=== PATIENT | female | born 1975 | race African-American/Black ===

== ENCOUNTER 2018-05-20 06:15 | Day surgery (SDC) | payer BC ==
--- NOTE | 2018-05-19 08:50 | EKG ---
Test Date: 2018-05-19 Test Time: 08:33:38 Animal Behaviourist: MULU MEASUREMENT RESULTS: Intervals: Rate: 64 WI: 140 QRSD: 90 QT: 430 QTc: 443 Gipsy: P: 54 WI: 140 QRS: 3 T: 8 INTERPRETIVE STATEMENTS: Normal sinus rhythm Normal ECG No previous ECG available for comparison Electronically Signed On 05-19-18 08:50:12 DIRECTOR [employer]ENCY by Wu Green
[2018-05-20 06:28] LABS: Specific Gravity >= 1.030 (1.005-1.030)
[2018-05-20] MEDS ORDERED: Ringers Lactate 1,000 ML IV ONE ×2 (06:51→08:37)
[2018-05-20] MEDS ORDERED: CEFAZOLIN/SWI 1gm 0 GM/0 ML SYR ONE ×2 (06:52)
[2018-05-20] MEDS ORDERED: LIDOCAINE 1% MPF 5 ML VIAL ONE (06:55)
[2018-05-20] MEDS ORDERED: Ringers Lactate 1,000 ML IV SCH (07:30)
[2018-05-20] MEDS: CEFAZOLIN/SWI 2gm 2 GM/20 ML SYR IVP SCH ×2 (07:34→07:44)
[2018-05-20] MEDS ORDERED: FENTANYL CITR 100 MCG/2 ML ONE (07:46)
[2018-05-20] MEDS ORDERED: MIDAZOLAM HCL 2 MG/2 ML INJ ONE (07:46)
[2018-05-20] MEDS ORDERED: LIDOCAINE 2% MPF 5 ML VIAL ONE (07:46)
[2018-05-20] MEDS ORDERED: PROPOFOL 200 MG/20 ML VIAL IV ONE (07:46)
[2018-05-20] MEDS ORDERED: FAMOTIDINE 20 MG/2 ML VIAL IV ONE (08:00)
[2018-05-20] MEDS ORDERED: KETOROLAC 30 MG/ML INJ ONE (08:29)
[2018-05-20] MEDS ORDERED: ONDANSETRON 4 MG/2 ML VIAL ONE (08:31)
[2018-05-20] MEDS ORDERED: DEXAMETHASONE 4 MG/ML VIAL ONE (08:31)
[2018-05-20] MEDS: MEPERIDINE HCL 25 MG/0.5 ML ONE ×2 (08:50→08:55)
[2018-05-20] MEDS ORDERED: HYDROCODONE/APAP 5/325 MG TAB ONE (09:54)
--- NOTE | 2018-05-24 09:06 | OP ---
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 Preoperative Diagnoses: Menorrhagia with regular cycles and dysmenorrhea. Postoperative Diagnoses: Menorrhagia with regular cycles and dysmenorrhea. Procedures Performed: Hysteroscopy, endometrial ablation with HTA, which is hydrothermal ablation. Anesthesia: General endotracheal. Specimens: No specimens. Complications: No complications. Drains: No drains. Condition: Stable. Findings: Endometrial ablation was performed successfully without any interruption. There was a dil ated right cornual end leading into the tube. No evidence of any leakage on cavity integrity test, t his passed very quickly, and the ablation was performed along the package instruction guidelines, and there was no problem with leak recognized, and the patient tolerated the procedure well. There was an excellent ablation effect at end of the procedure. Indications: The patient is a 43-year-old with menorrhagia and dysmenorrhea. She had an ongoing hea vy bleeding with clots. She was evaluated with ultrasound and endometrial sampling. No evidence of any malignancy or atypia. So, we discussed about the options of using a Mirena IUD with diagnostic l aparoscopy and possible endo treatment. The patient declined to have an IUD, so we talked about an e ndometrial ablation for treating her bleeding and possibly a laparoscopy to diagnose the etiology for her pain. However, the patient did not want to have any kind of laparoscopic procedure unless it wa s a hysterectomy. We discussed this again. She declined the use of depot medroxyprogesterone and IU D, so endometrial ablation was thought to be more appropriate for this patient if the pain does not g et better with cramps, as both of them correlate most of the times, at the same time to the time of t he periods. We discussed this at length, and the patient was consented. Description Of Procedure: She was brought to the OR after re-consenting in the preop. 2 g of Ancef was given. She was brought back into the operating theater, placed in a supine fashion on the operat ing table. After general anesthesia was given with an LMA, the patient was placed in a dorsal lithot paddy position using Carlos stirrups. Prep x3 with Betadine was done on the vulva, vagina, and perineum . A speculum was placed to expose the cervix. Anterior lip was grasped with 2 Allis clamps. Using the HTA sheath after it was primed, diagnostic hysteroscopy was performed through the cervical canal into the uterine cavity. The cavity appeared to be empty; however, there was a dilated right tubal e nd, which on visualization appeared to be extremely dilated. There was some concern for possible dane kage, so decided to do the cavity integrity test first, and if this passed in the first pass without any delay in the response, then proceed with HTA; otherwise, probably use the NovaSure ablation at th is point. After placing the tip of the scope in the center of the cavity and packing 2 Ray-Tecs in t he posterior fornix leaving the speculum in, the patient was placed in a Trendelenburg position. Cav ity integrity test passed without any leak, so at this point, decided to proceed with the ablation us ing the hydrothermal ablator. Once this was done, the level of the patient was placed at the level o f the machine ensuring low pressures. The Allis clamp on the anterior lip was hooked onto the HTA sh eat. Then started with the heating cycle for 10-minute ablation cycle and 1-1/2-minute cooling cycl es were all conducted without any interruption. 30 mg of Toradol intravenously was given to the toña ent. After the ablation was completed, thorough irrigation and suction were performed with the hyste roscope again. Pictures were taken. All the Ray-Tecs were removed. Instruments were removed. Inst rument, needle, and sponge counts were done and were correct at the end of the case. The patient anjana erated the procedure well. She will follow up with me in 3 weeks. She does not have any antibiotics for home. Her was notified of the dilated tube. However, we will discuss the findings with the patient. JASVIR/OLE Voice ID: [id number] Report ID: [id number]
== END 2018-05-20 10:29 | disposition home or self-care (01) ==
LOC: OR 06:15
PROVIDERS: ATTEND Obstetrics & Gynecology
PROC: 0U5B8ZZ Destruction of Endometrium, Via Natural or Artificial Opening Endoscopic (ICD-10-PCS; principal; 2018-05-20 07:30)
DX: N92.0 Excessive and frequent menstruation with regular cycle (principal); N94.6 Dysmenorrhea, unspecified; I10 Essential (primary) hypertension; Z79.899 Other long term (current) drug therapy
CPT/HCPCS: 81025; 93005; J0690; J2175; J2250; J2405; J2704; J3010